=== PATIENT | female | born 1980 | race Caucasian/White ===

== ENCOUNTER 2021-11-10 14:15 | Inpatient (IN) | payer OTHER ==
[2021-11-10 14:36] LABS: BILIRUBIN,URINE NEGATIVE (NEGATIVE); GLUCOSE, URINE (UA) NEGATIVE (NEGATIVE); KETONES,URINE (UA) NEGATIVE (NEGATIVE); LEUKOCYTE ESTERASE, URINE NEGATIVE (NEGATIVE); NITRITE,URINE NEGATIVE (NEGATIVE); OCCULT BLOOD,URINE LARGE (NEGATIVE); PROTEIN,URINE NEGATIVE (NEGATIVE); UROBILINOGEN,URINE 0.2 (NORMAL) E.U./dL (NORMAL)
[2021-11-10] MEDS ORDERED: MAGNESIUM SULFATE 2 GRAM 2 GM/50 ML BAG IV ONE ×2 (14:40→14:41)
[2021-11-10 14:42] LABS: BASOPHILS # (AUTO) 0.1 10^3/uL (0.0-0.1); BASOPHILS % (AUTO) 0.9 %; EOSINOPHILS # (AUTO) 0.5 10^3/uL (0.0-0.7); EOSINOPHILS % (AUTO) 4.5 %; HCT - HEMATOCRIT 31.8 % (37.0-47.0); HGB - HEMOGLOBIN 10.3 g/dL (12.0-16.0); LYMPHOCYTES # (AUTO) 3.2 10^3/uL (1.5-3.5); LYMPHOCYTES % (AUTO) 26.6 %; MEAN CORPUSCULAR HGB CONC 32.4 g/dL (32.0-36.0); MEAN CORPUSCULAR VOLUME 89.6 fL (81.0-99.0); MEAN PLATELET VOLUME 9.7 fL (7.9-10.8); MONOCYTES # (AUTO) 1.3 10^3/uL (0.0-1.0); MONOCYTES % (AUTO) 10.6 %; NEUTROPHILS # (AUTO) 6.7 10^3/uL (1.5-6.6); NEUTROPHILS % (AUTO) 56.1 %; PLT - PLATELET COUNT 581 10^3/uL (130-450); RED BLOOD COUNT 3.55 10^6/uL (4.20-5.40); RED CELL DISTRIBUTION WIDTH 12.6 % (12.0-15.0)
[2021-11-10] MEDS ORDERED: LABETALOL 20 MG/4 ML SYRINGE IVP STA (14:42)
--- NOTE | 2021-11-10 14:43 | ED Physician Documentation ---
History of Present Illness - Stated complaint Stated Complaint: HIGH BLOOD PRESSURE/POST OP - Chief complaint Chief Complaint: General - History obtained from History obtained from: Patient - History of Present Illness Timing: Today Pain level max: 3 Pain level now: 2 - Additonal information Additional information: Patient is a 41-year-old female, 1 para 1 who delivered via approximately 8 days ago at [facility] in [place]. She states that she had issues with preeclampsia. Was started on labetalol 200 mg p.o. twice daily as well as Lasix 20 mg p.o. daily. She stopped the Lasix yesterday. Today noticed her blood pressure was spiking after taking labetalol. Systolic blood pressure greater than 180 at home. Was told to come in for evaluation. Patient states she has a mild headache. She is attempting to breast-feed, but is waiting for her milk to come in. She states she has minimal abdominal pain. No fevers. No chills. No vision changes. No seizure activity. Review of Systems Ten Systems: 10 systems reviewed and negative Constitutional: denies: Fever, Chills Ears: denies: Ear pain Nose: denies: Rhinorrhea / runny nose, Congestion Throat: denies: Sore throat Cardiac: denies: Chest pain / pressure Respiratory: denies: Dyspnea, Cough GI: denies: Abdominal Pain, Nausea, Vomiting, Diarrhea Skin: denies: Rash Musculoskeletal: denies: Neck pain, Back pain Neurologic: reports: Headache (Mild headache, holoacranial, gradual in onset). 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 - Present Medications Home Medications: Ambulatory Orders Medication Instructions Recorded Confirmed Ibuprofen [Motrin] 600 mg PO Q6HR PRN 11/10/21 11/10/21 Labetalol [Trandate] 100 mg PO BID 11/10/21 11/10/21 - Allergies Allergies/Adverse Reactions: Allergies Allergy/AdvReac Type Severity Reaction Status Date / Time No Known Drug Allergies Allergy Verified 11/10/21 14:19 - Living Situation Living Arrangement: reports: At home - Social History Does the pt have substance abuse?: No - Family History Family history: reports: Non contributory PD ED PE NORMAL - Vitals Vital signs reviewed: Yes - General General: Alert and oriented X 3, No acute distress, Well developed/nourished - HEENT HEENT: PERRL, Moist mucous membranes - Neck Neck: Supple, no meningeal sign - Cardiac Cardiac: RRR, Strong equal pulses - Respiratory Respiratory: No respiratory distress, Clear bilaterally - Abdomen Abdomen: Soft, Non tender, Non distended - Back Back: No spinal TTP - Derm Derm: Warm and dry - Extremities Extremities: No edema, No calf tenderness / cord - Neuro Neuro: Alert and oriented X 3, 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, No motor deficit, No sensory deficit, Normal speech Eye Opening: Spontaneous Motor: Obeys Commands Verbal: Oriented GCS Score: 15 - Psych Psych: Normal mood, Normal affect Results - Vitals Vitals: Vital Signs - 24 hr 11/10/21 11/10/21 11/10/21 14:19 14:51 15:06 Temperature 36.5 C Heart Rate 52 L 51 L 48 L Respiratory 16 23 24 Rate Blood Pressure 186/91 H 161/76 H 129/86 H O2 Saturation 99 97 98 11/10/21 11/10/21 15:14 16:00 Temperature Heart Rate 51 L 95 Respiratory 26 H 16 Rate Blood Pressure 157/93 H 167/93 H O2 Saturation 99 98 Oxygen O2 Source Room air - EKG (time done) 1451 Rate: Rate (enter#) (49) Rhythm: Sinus bradycardia [place]: Normal Intervals: Normal [place] QRS: Normal Ischemia: Normal ST segments - Labs Labs: Laboratory Tests 11/10/21 11/10/21 11/10/21 14:27 14:27 14:32 WBC 12.0 H RBC 3.55 L Hgb 10.3 L Hct 31.8 L MCV 89.6 MCH 29.0 MCHC 32.4 RDW 12.6 Plt Count 581 H MPV 9.7 Neut # (Auto) 6.7 H Lymph # (Auto) 3.2 [place] # (Auto) 1.3 H Eos # (Auto) 0.5 Baso # (Auto) 0.1 Absolute Nucleated RBC 0.00 Nucleated RBC % 0.0 Sodium Potassium Chloride Carbon Dioxide Anion Gap BUN Creatinine Estimated GFR (MDRD) Glucose Calcium Phosphorus Magnesium Total Bilirubin AST ALT Alkaline Phosphatase Total Protein Albumin Globulin Albumin/Globulin Ratio Lipase Urine Color YELLOW Urine Clarity CLEAR Urine pH 6.0 Ur Specific [place] <=1.005 Urine Protein NEGATIVE Urine Glucose (UA) NEGATIVE Urine Ketones NEGATIVE Urine Occult Blood LARGE H Urine Nitrite NEGATIVE Urine Bilirubin NEGATIVE Urine Urobilinogen 0.2 (NORMAL) Ur Leukocyte Esterase NEGATIVE Urine RBC 0-5 Urine WBC 0-3 Ur Epithelial Cells FEW Transitional Ur Squamous Epith Cells FEW Squamous Urine Bacteria None Seen Ur Microscopic Review INDICATED Urine Culture Comments NOT INDICATED Urine Creatinine 20.4 Ur Total Protein Timed < 6 Protein/Creatinin Ratio Not Reportable SARS-CoV-2 (PCR) 11/10/21 11/10/21 14:32 14:38 WBC RBC Hgb Hct MCV MCH MCHC RDW Plt Count MPV Neut # (Auto) Lymph # (Auto) [place] # (Auto) Eos # (Auto) Baso # (Auto) Absolute Nucleated RBC Nucleated RBC % Sodium 139 Potassium 4.3 Chloride 103 Carbon Dioxide 23 Anion Gap 13.0 BUN 12 Creatinine 0.7 Estimated GFR (MDRD) 92 Glucose 88 Calcium 9.1 Phosphorus 5.0 H Magnesium 2.2 Total Bilirubin 0.4 AST 25 ALT 36 Alkaline Phosphatase 142 H Total Protein 7.3 Albumin 3.2 Globulin 4.1 Albumin/Globulin Ratio 0.8 L Lipase 39 Urine Color Urine Clarity Urine pH Ur Specific [place] Urine Protein Urine Glucose (UA) Urine Ketones Urine Occult Blood Urine Nitrite Urine Bilirubin Urine Urobilinogen Ur Leukocyte Esterase Urine RBC Urine WBC Ur Epithelial Cells Ur Squamous Epith Cells Urine Bacteria Ur Microscopic Review Urine Culture Comments Urine Creatinine Ur Total Protein Timed Protein/Creatinin Ratio SARS-CoV-2 (PCR) NOT DETECTED PD MEDICAL DECISION MAKING - ED course Complexity details: reviewed results, re-evaluated patient, considered differential, d/w patient, d/w strategic consultant ED course: Patient is a 41-year-old female, 8 days . Has significantly elevated blood pressures. We will treat as preeclampsia. Given IV labetalol, magnesium drip started. Discussed with OB on-call, will admit for further care. Blood pressure decreased in the emergency department and headache resolved. This document was made in part using voice recognition software. While efforts are made to proofread this document, sound alike and grammatical errors may occur. Departure - Departure Disposition: [facility] DC/Xfer Clinical Impression: Pre-eclampsia Qualifiers: Qualified Code(s): O14.90 - Unspecified pre-eclampsia, unspecified trimester Hypertension Qualifiers: Hypertension type: unspecified Qualified Code(s): I10 - Essential (primary) hypertension Condition: Stable Discharge Date/Time: 11/10/21 16:34
[2021-11-10 14:58] LABS: CLARITY,URINE CLEAR (CLEAR); RBC,URINE 0-5 /HPF (0-5); SQUAMOUS EPITHELIAL CELL,UR FEW Squamous (<= Few); WBC,URINE 0-3 /HPF (0-5)
[2021-11-10 14:59] LABS: BACTERIA,URINE None Seen /HPF (None Seen); EPITHELIAL CELLS,UR FEW Transitional /HPF (<= Few)
[2021-11-10 14:59] LABS: ALBUMIN 3.2 g/dL (3.2-5.5); ALBUMIN/GLOBULIN RATIO 0.8 (1.0-2.2); BILIRUBIN,TOTAL 0.4 mg/dL (0.2-1.0); CALCIUM 9.1 mg/dL (8.5-10.3); CREATININE 0.7 mg/dL (0.4-1.0); MAGNESIUM 2.2 mg/dL (1.7-2.8); POTASSIUM 4.3 mmol/L (3.5-5.0); TOTAL PROTEIN 7.3 g/dL (6.7-8.2)
[2021-11-10 15:07] LABS: CREATININE,URINE 20.4 mg/dL
[2021-11-10 15:08] LABS: TOTAL PROTEIN,URINE TIMED < 6 mg/dL
--- NOTE | 2021-11-10 15:53 | HISTORY & PHYSICAL EXAMINATION ---
Admit History - Visit Reason Visit Reason: Other (Patient presented to the emergency department with complaints of headache. She reports a history of preeclampsia. She had a primary section on 11/01 reportedly following a failed induction of labor at 37 weeks.) - : 1 Parity: 1 Care: positive: Other (Matilda) Complications This : positive: Other (Preeclampsia) Smoking Status: Never smoker Meds/Allgy - Home Medications Home Medications: Ambulatory Orders Medication Instructions Recorded Confirmed Ibuprofen [Motrin] 600 mg PO Q6HR PRN 11/10/21 11/10/21 Labetalol [Trandate] 100 mg PO BID 11/10/21 11/10/21 - Allergies Allergies/Adverse Reactions: Allergies Allergy/AdvReac Type Severity Reaction Status Date / Time No Known Drug Allergies Allergy Verified 11/10/21 14:19 Physical - Abdominal Exam Vital Signs: Temp Pulse Resp BP Pulse Ox 97.7 F 51 L 26 H 157/93 H 99 11/10/21 14:19 11/10/21 15:14 11/10/21 15:14 11/10/21 15:14 11/10/21 15:14 Vital Signs - 24 hr 11/10/21 11/10/21 11/10/21 14:19 14:51 15:06 Temperature 97.7 F Heart Rate 52 L 51 L 48 L Respiratory 16 23 24 Rate Blood Pressure 186/91 H 161/76 H 129/86 H O2 Saturation 99 97 98 11/10/21 11/10/21 15:14 16:00 Temperature Heart Rate 51 L 95 Respiratory 26 H 16 Rate Blood Pressure 157/93 H 167/93 H O2 Saturation 99 98 Physical Exam Height: 5 ft 11 in Heart: regular rate and rhythm Lungs: clear bilaterally Abdomen: soft, non-tender, other: (Pfannenstiel incision clean dry and well- healing. Steri-Strips in place.) Extremities: 2+ edema Assessment/Plan - Problem List (1) Pre-eclampsia Impression: 41-year-old G1, P1 postop day 9 status post primary section. #Preeclampsia, postpartumbased on severe range blood pressures 160s to 180s systolic over 90s to 100s diastolic. Patient reports a history of preeclampsia prior to delivery. She was discharged with labetalol. She reports she denies a history of hypertension prior to . Labs reviewed and within normal limits. Patient was started on IV labetalol and magnesium sulfate for seizure prophylaxis in the emergency department. Blood pressures remain severe range. Will titrate antihypertensives as indicated. Patient counseled on risk associated with preeclampsia which include neurologic deficits and eclampsia. She understands the risk and agrees tp inpatient management. Will request outside records from delivery. Qualifiers: Qualified Code(s): O14.90 - Unspecified pre-eclampsia, unspecified trimester Assessment Discharge Assessment: This is Day of Life #[] for this [premature/term/late-term/late premature] baby [boy/girl] born via delivery at and is ready for discharge. * [] * [] * []
[2021-11-10] MEDS ORDERED: ZOLPIDEM 5 MG TABLET PO PRN (16:19)
[2021-11-10] MEDS ORDERED: MAGNESIUM SULFATE 4 GRAM 4 GM/50 ML BAG IV ONE (16:24)
[2021-11-10] MEDS ORDERED: NIFEdipine 10 MG CAPSULE PO STA (16:29)
[2021-11-10] MEDS ORDERED: MAGNESIUM SULFATE IN WATER 20 GM/500 ML IV.SOLN IV SCH ×2 (17:00→23:45)
[2021-11-10] MEDS ORDERED: MAGNESIUM SULFATE 2 GRAM 2 GM/50 ML BAG IV SCH (17:00)
[2021-11-10] MEDS ORDERED: LABETALOL 20 MG/4 ML SYRINGE IVP ONE (17:00)
[2021-11-10] MEDS ORDERED: LACTATED RINGERS 1,000 ML IV SCH ×2 (17:00)
[2021-11-10] MEDS ORDERED: LACTATED RINGERS 1,000 ML ONE (17:20)
[2021-11-10] MEDS: NIFEdipine ER 30 MG TABLET PO SCH (17:53)
[2021-11-10] MEDS ORDERED: NIFEdipine ER 30 MG TABLET PO SCH (19:00)
[2021-11-10] MEDS: ACETAMINOPHEN 500 MG TABLET PO PRN (21:21)
[2021-11-11] MEDS: ACETAMINOPHEN 500 MG TABLET PO PRN ×3 (03:41→15:17)
[2021-11-11] MEDS: NIFEdipine ER 30 MG TABLET PO SCH (09:18)
--- NOTE | 2021-11-11 11:05 | PROVIDER PROGRESS NOTE ---
Subjective - Prog Note Date Prog Note Date: 11/11/21 Prog Note Time: 11:03 - Subjective Pt reports feeling: Improved Subjective: Has no complaints currently. Overnight she does report fogginess and generalized fatigue. Magnesium sulfate rate was reduced and levels checked. She does report improvement in her symptoms this morning. She denies headaches vision changes or abdominal pain. Current Medications - Current Medications Current Medications: Current Medications Generic Name Dose Route Start Last Admin Trade Name Ralf PRN Reason Stop Dose Admin Acetaminophen 500 mg 11/10/21 21:04 11/11/21 09:18 Acetaminophen 500 Mg Tablet PO 500 mg Q6HR PRN Administration PAIN Lactated Ringer's 1,000 mls @ 30 mls/hr 11/10/21 17:00 11/10/21 17:05 Lr IV 30 mls/hr .[id number] JASON Administration Magnesium Sulfate 20 gm in 500 mls @ 25 mls/hr 11/10/21 23:45 11/11/21 05:41 Magnesium Sulf 20 G/500 Ml Bag IV 1 gm/hr .Q20H JASON 25 mls/hr Administration 1 GM/HR Nifedipine 30 mg 11/10/21 18:00 11/11/21 09:18 Nifedipine Er 30 Mg Tablet PO 30 mg DAILY JASON Administration Objective - Vital Signs/Intake & Output Reviewed Vital Signs: Yes Vital Signs: Vital Signs x48h Temp Pulse Pulse Pulse Resp BP Pulse Ox 11/11/21 10:22 84 18 148/81 H 100 11/11/21 08:24 97.7 F 83 16 147/68 H 11/11/21 05:30 66 18 139/70 H 98 11/11/21 03:30 97.3 F L 67 16 142/70 H 100 Intake & Output: Intake & Output 11/08/21 11/09/21 11/10/21 11/11/21 23:59 23:59 23:59 23:59 Intake Total 580 1138.750 Output Total 5100 4900 Balance -4520 -3761.250 - Objective General Appearance: positive: No acute distress Extremities: positive: Non-tender, Pedal edema (1+ bilateral) - Lab Results Fish Bones: 11/10/21 14:32 11/10/21 14:32 Other Labs: Lab Results x24hrs 11/11/21 11/10/21 11/10/21 Range/Units 09:26 23:59 14:38 WBC (4.8-10.8) x10^3/uL RBC (4.20-5.40) 10^6/uL Hgb (12.0-16.0) g/dL Hct (37.0-47.0) % MCV (81.0-99.0) fL MCH (27.0-31.0) pg MCHC (32.0-36.0) g/dL RDW (12.0-15.0) % Plt Count (130-450) 10^3/uL MPV (7.9-10.8) fL Neut # (Auto) (1.5-6.6) 10^3/uL Lymph # (Auto) (1.5-3.5) 10^3/uL [place] # (Auto) (0.0-1.0) 10^3/uL Eos # (Auto) (0.0-0.7) 10^3/uL Baso # (Auto) (0.0-0.1) 10^3/uL Absolute Nucleated RBC x10^3/uL Nucleated RBC % /100WBC Sodium (135-145) mmol/L Potassium (3.5-5.0) mmol/L Chloride (101-111) mmol/L Carbon Dioxide (21-32) mmol/L Anion Gap (6-13) BUN (6-20) mg/dL Creatinine (0.4-1.0) mg/dL Estimated GFR (MDRD) (>89) Glucose (70-100) mg/dL Calcium (8.5-10.3) mg/dL Phosphorus (2.5-4.6) mg/dL Magnesium 4.8 H 4.6 H (1.7-2.8) mg/dL Total Bilirubin (0.2-1.0) mg/dL AST (10-42) IU/L ALT (10-60) IU/L Alkaline Phosphatase (42-121) IU/L Total Protein (6.7-8.2) g/dL Albumin (3.2-5.5) g/dL Globulin (2.1-4.2) g/dL Albumin/Globulin Ratio (1.0-2.2) Lipase (22-51) U/L Urine Color Urine Clarity (CLEAR) Urine pH (5.0-7.5) PH Ur Specific [place] (1.002-1.030) Urine Protein (NEGATIVE) mg/dL Urine Glucose (UA) (NEGATIVE) mg/dL Urine Ketones (NEGATIVE) mg/dL Urine Occult Blood (NEGATIVE) Urine Nitrite (NEGATIVE) Urine Bilirubin (NEGATIVE) Urine Urobilinogen (NORMAL) E.U./dL Ur Leukocyte Esterase (NEGATIVE) Urine RBC (0-5) /HPF Urine WBC (0-5) /HPF Ur Epithelial Cells (<= Few) /HPF Ur Squamous Epith Cells (<= Few) Urine Bacteria (None Seen) /HPF Ur Microscopic Review Urine Culture Comments Urine Creatinine mg/dL Ur Total Protein Timed mg/dL Protein/Creatinin Ratio SARS-CoV-2 (PCR) NOT DETECTED 11/10/21 11/10/21 11/10/21 Range/Units 14:32 14:32 14:27 WBC 12.0 H (4.8-10.8) x10^3/uL RBC 3.55 L (4.20-5.40) 10^6/uL Hgb 10.3 L (12.0-16.0) g/dL Hct 31.8 L (37.0-47.0) % MCV 89.6 (81.0-99.0) fL MCH 29.0 (27.0-31.0) pg MCHC 32.4 (32.0-36.0) g/dL RDW 12.6 (12.0-15.0) % Plt Count 581 H (130-450) 10^3/uL MPV 9.7 (7.9-10.8) fL Neut # (Auto) 6.7 H (1.5-6.6) 10^3/uL Lymph # (Auto) 3.2 (1.5-3.5) 10^3/uL [place] # (Auto) 1.3 H (0.0-1.0) 10^3/uL Eos # (Auto) 0.5 (0.0-0.7) 10^3/uL Baso # (Auto) 0.1 (0.0-0.1) 10^3/uL Absolute Nucleated RBC 0.00 x10^3/uL Nucleated RBC % 0.0 /100WBC Sodium 139 (135-145) mmol/L Potassium 4.3 (3.5-5.0) mmol/L Chloride 103 (101-111) mmol/L Carbon Dioxide 23 (21-32) mmol/L Anion Gap 13.0 (6-13) BUN 12 (6-20) mg/dL Creatinine 0.7 (0.4-1.0) mg/dL Estimated GFR (MDRD) 92 (>89) Glucose 88 (70-100) mg/dL Calcium 9.1 (8.5-10.3) mg/dL Phosphorus 5.0 H (2.5-4.6) mg/dL Magnesium 2.2 (1.7-2.8) mg/dL Total Bilirubin 0.4 (0.2-1.0) mg/dL AST 25 (10-42) IU/L ALT 36 (10-60) IU/L Alkaline Phosphatase 142 H (42-121) IU/L Total Protein 7.3 (6.7-8.2) g/dL Albumin 3.2 (3.2-5.5) g/dL Globulin 4.1 (2.1-4.2) g/dL Albumin/Globulin Ratio 0.8 L (1.0-2.2) Lipase 39 (22-51) U/L Urine Color Urine Clarity (CLEAR) Urine pH (5.0-7.5) PH Ur Specific [place] (1.002-1.030) Urine Protein (NEGATIVE) mg/dL Urine Glucose (UA) (NEGATIVE) mg/dL Urine Ketones (NEGATIVE) mg/dL Urine Occult Blood (NEGATIVE) Urine Nitrite (NEGATIVE) Urine Bilirubin (NEGATIVE) Urine Urobilinogen (NORMAL) E.U./dL Ur Leukocyte Esterase (NEGATIVE) Urine RBC (0-5) /HPF Urine WBC (0-5) /HPF Ur Epithelial Cells (<= Few) /HPF Ur Squamous Epith Cells (<= Few) Urine Bacteria (None Seen) /HPF Ur Microscopic Review Urine Culture Comments Urine Creatinine 20.4 mg/dL Ur Total Protein Timed < 6 mg/dL Protein/Creatinin Ratio Not Reportable SARS-CoV-2 (PCR) 11/10/21 Range/Units 14:27 WBC (4.8-10.8) x10^3/uL RBC (4.20-5.40) 10^6/uL Hgb (12.0-16.0) g/dL Hct (37.0-47.0) % MCV (81.0-99.0) fL MCH (27.0-31.0) pg MCHC (32.0-36.0) g/dL RDW (12.0-15.0) % Plt Count (130-450) 10^3/uL MPV (7.9-10.8) fL Neut # (Auto) (1.5-6.6) 10^3/uL Lymph # (Auto) (1.5-3.5) 10^3/uL [place] # (Auto) (0.0-1.0) 10^3/uL Eos # (Auto) (0.0-0.7) 10^3/uL Baso # (Auto) (0.0-0.1) 10^3/uL Absolute Nucleated RBC x10^3/uL Nucleated RBC % /100WBC Sodium (135-145) mmol/L Potassium (3.5-5.0) mmol/L Chloride (101-111) mmol/L Carbon Dioxide (21-32) mmol/L Anion Gap (6-13) BUN (6-20) mg/dL Creatinine (0.4-1.0) mg/dL Estimated GFR (MDRD) (>89) Glucose (70-100) mg/dL Calcium (8.5-10.3) mg/dL Phosphorus (2.5-4.6) mg/dL Magnesium (1.7-2.8) mg/dL Total Bilirubin (0.2-1.0) mg/dL AST (10-42) IU/L ALT (10-60) IU/L Alkaline Phosphatase (42-121) IU/L Total Protein (6.7-8.2) g/dL Albumin (3.2-5.5) g/dL Globulin (2.1-4.2) g/dL Albumin/Globulin Ratio (1.0-2.2) Lipase (22-51) U/L Urine Color YELLOW Urine Clarity CLEAR (CLEAR) Urine pH 6.0 (5.0-7.5) PH Ur Specific [place] <=1.005 (1.002-1.030) Urine Protein NEGATIVE (NEGATIVE) mg/dL Urine Glucose (UA) NEGATIVE (NEGATIVE) mg/dL Urine Ketones NEGATIVE (NEGATIVE) mg/dL Urine Occult Blood LARGE H (NEGATIVE) Urine Nitrite NEGATIVE (NEGATIVE) Urine Bilirubin NEGATIVE (NEGATIVE) Urine Urobilinogen 0.2 (NORMAL) (NORMAL) E.U./dL Ur Leukocyte Esterase NEGATIVE (NEGATIVE) Urine RBC 0-5 (0-5) /HPF Urine WBC 0-3 (0-5) /HPF Ur Epithelial Cells FEW Transitional (<= Few) /HPF Ur Squamous Epith Cells FEW Squamous (<= Few) Urine Bacteria None Seen (None Seen) /HPF Ur Microscopic Review INDICATED Urine Culture Comments NOT INDICATED Urine Creatinine mg/dL Ur Total Protein Timed mg/dL Protein/Creatinin Ratio SARS-CoV-2 (PCR) Assessment/Plan - Problem List (1) Pre-eclampsia Impression: 41-year-old postop day 10 status post primary section admitted for preeclampsia. # preeclampsiaon magnesium sulfate for seizure prophylaxis. Patient started on nifedipine yesterday. Patient was previously on labetalol however pulse was noted to be in the 50s therefore nifedipine was started.. Blood pressures normal to mild range. Magnesium sulfate rate was reduced as patient was symptomatic. Magnesium level is now therapeutic. Plan for mag sulfate for 24 hours. Plan discussed extensively with patient. Will titrate p.o. antihypertensives as needed. Qualifiers: Qualified Code(s): O14.90 - Unspecified pre-eclampsia, unspecified trimester
[2021-11-11] MEDS ORDERED: LABETALOL 100 MG TABLET PO SCH (17:00)
[2021-11-11 19:10] VITALS: BP 116/63
--- NOTE | 2021-11-11 19:38 | Discharge Plan ---
Discharge Plan Problem Reviewed?: Yes Disposition: Home, Self Care Condition: Stable Prescriptions: NIFEdipine [Procardia Xl] 30 mg PO DAILY #30 tablet Diet: Regular Additional Instructions or Follow Up instructions: Follow up with OB in 48 -72 hours. Return to ED for systolic blood pressures 160 or greater or diastolic blood pressures 110 or greater. Return to ED for headaches, vision changes, or abdominal pain. No Smoking: If you smoke, Please STOP! Call for help.
--- NOTE | 2021-11-11 19:53 | DISCHARGE SUMMARY ---
Discharge Summary Admit Date: 11/10/21 Discharge Date: 11/11/21 Condition at Discharge: Stable Discharge Disposition: 01 Home, Self Care - DIAGNOSES Admission Diagnoses: preeclampsia Discharge Diagnoses with Status of Each Condition: preeclampsia - HOSPITAL COURSE Hospital Course: 41-year-old G1, P1 postop day 10 status post primary admitted for preeclampsia. The patient presented with severe range blood pressures in the emergency department. She also reported headache. She previously delivered at [facility] and was discharged on labetalol. She was started on magnesium sulfate for seizure prophylaxis for 24 hours. She was also started on nifedipine. Her blood pressures were normal to mild range on hospital day 2 and the patient desired to be discharged. She was stable for discharge with preeclampsia warnings. She was instructed to return to the emergency department for severe range blood pressures, vision changes or abdominal pain. She was instructed to follow-up with OB in 48 to 72 hours. - ALLERGIES Allergies/Adverse Reactions: Allergies Allergy/AdvReac Type Severity Reaction Status Date / Time No Known Drug Allergies Allergy Verified 11/10/21 14:19 - MEDICATIONS Home Medications: Ambulatory Orders Medication Instructions Recorded Confirmed Ibuprofen [Motrin] 600 mg PO Q6HR PRN 11/10/21 11/10/21 NIFEdipine [Procardia Xl] 30 mg PO DAILY #30 tablet 11/11/21 - PHYSICAL EXAM AT DISCHARGE General Appearance: positive: No acute distress Abdomen: positive: Non-tender. negative: Guarding, Rebound - LABS Result Diagrams: 11/10/21 14:32 11/10/21 14:32 - FOLLOW UP Follow Up: In 48 to 72 hours with OB.
== END 2021-11-11 20:20 | disposition home or self-care (01) | DRG 776 ==
LOC: ED 14:15 → FBP 16:13
PROVIDERS: ADMIT Obstetrics & Gynecology; ATTEND Obstetrics & Gynecology
DX: O14.95 Unspecified pre-eclampsia, complicating the puerperium (principal); Z20.822 Contact with and (suspected) exposure to COVID-19
CPT/HCPCS: 36415; 80053; 81001; 82570; 83690; 83735; 84100; 84156; 85025; 87635; 93005; 96365; 96375; 96376; 99284; 99285; A9270; J7120; 81003; 87086

== ENCOUNTER 2022-12-14 05:57 | Emergency (ER) | payer OTHER ==
[2022-12-14 06:10] VITALS: BP 119/68
--- NOTE | 2022-12-14 06:15 | ED Physician Documentation ---
PD HPI UPPER EXT INJURY - Stated complaint Stated Complaint: LT THUMB INJ - Chief complaint Chief Complaint: Trauma Ext - History obtained from History obtained from: Patient - History of Present Illness Location: Left, Finger (base of thumb) Type of injury: Fall (she states she slipped getting up from sitting and fell forward, catching thumb on furniture and causing hyperextnesion/twist of the thumb at the base. She felt a pop and has pain and swelling there. Hurts/weak for ROM.), Twist Associated symptoms: Swelling. 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 - Present Medications Home Medications: Ambulatory Orders Medication Instructions Recorded Confirmed Ibuprofen [Motrin] 600 mg PO Q6HR PRN 11/10/21 11/10/21 NIFEdipine [Procardia Xl] 30 mg PO DAILY #30 tablet 11/11/21 - Allergies Allergies/Adverse Reactions: Allergies Allergy/AdvReac Type Severity Reaction Status Date / Time No Known Drug Allergies Allergy Verified 12/14/22 06:09 - Social History Does the pt smoke?: No Smoking Status: Never smoker Does the pt drink ETOH?: No Does the pt have substance abuse?: No PD ED PE NORMAL - Vitals Vital signs reviewed: Yes - General General: Alert and oriented X 3, Well developed/nourished - Extremities Extremities: Other (left thumb with swelling at MCP and mostly n the thenar muscle area. No gross laxity on passive testing of thumb joints and no pain/laxity on UCL stress. Weak flexion and painful oppositon of thumb to little finger. ) - Neuro Neuro: No motor deficit, No sensory deficit Results - Vitals Vitals: Vital Signs - 24 hr 12/14/22 12/14/22 06:06 07:07 Temperature 35.7 C L Heart Rate 58 L 57 L Respiratory 19 19 Rate Blood Pressure 119/68 119/68 O2 Saturation 99 99 Oxygen O2 Source Room air - Rads (name of study) right hand Relevant Findings:: Prelim report reviewed, EMP independent interpretation of test (no fractures), See rad report PD Medical Decision Making - ED course Complexity details: considered differential (fall with thumb base injury. No laxity on stress testing. Low suspicion for UCL tear based on exam. Presume strain and muscle thenar injury. Will treat with thumb spica velcro, which she says makes it feel better here. ), d/w patient Departure - Departure Disposition: 01 Home, Self Care Clinical Impression: Accidental fall Qualifiers: Encounter type: initial encounter Qualified Code(s): W19.XXXA - Unspecified fall, initial encounter Left thumb sprain Qualifiers: Encounter type: initial encounter Sprain of finger site: metacarpophalangeal joint Qualified Code(s): S63.642A - Sprain of metacarpophalangeal joint of left thumb, initial encounter Condition: Stable Record reviewed to determine appropriate education?: Yes Instructions: ED Sprain Finger Comments: Your x-ray appears normal without any signs of fractures no dislocations. Clinically it seems like a thumb sprain with injury of the ligaments. I would anticipate improve movement as the pain and swelling go down. Use the thumb splint to help protect motion and allow healing. No use a thumb splint fairly regularly for the next several days to even 7 to 10 days until this is feeling quite well. Progress use and activity as tolerated. Recheck if not improving over the next several days and back to normal by 7 to 10 days. Tylenol ibuprofen if needed for pains. Ice to the area periodically for swelling. Discharge Date/Time: 12/14/22 07:08
--- NOTE | 2022-12-14 08:07 | XRAY Report ---
PROCEDURE: Hand 3 View LT INDICATIONS: thumb base pain/swelling after fall TECHNIQUE: 3 views of the hand(s) acquired. COMPARISON: None. FINDINGS: Bones: No displaced fracture or dislocation. No significant degenerative changes. Soft tissues: No suspicious calcifications. IMPRESSION: No acute radiographic abnormality. If there is high concern for occult injury, consider repeat radiog henry or cross-sectional imaging. Agree with preliminary report. Reviewed by: Darrick Gold MD on 12/14/2022 8:06 AM PDT Approved by: Darrick Gold MD on 12/14/2022 8:06 AM PDT Station ID: [id number]
== END 2022-12-14 07:08 | disposition home or self-care (01) ==
LOC: ED 05:57
DX: S63.642A Sprain of metacarpophalangeal joint of left thumb, initial encounter (principal); W01.0XXA Fall on same level from slipping, tripping and stumbling without subsequent striking against object, initial encounter
CPT/HCPCS: 99283